=== PATIENT | female | born 1985 | race Caucasian/White ===

== ENCOUNTER 2016-09-03 22:05 | Emergency (ER) | payer MEDICAID ==
[2016-09-03 22:29] VITALS: BP 95/68
--- NOTE | 2016-09-03 23:34 | EDM.PDOC ---
ED HPI GENERAL MEDICAL PROBLEM - General Chief Complaint: [employer] Problem Stated Complaint: VAGINAL BLEEDING Time Seen by Provider: 09/03/16 22:09 Source of Information: Reports: Patient History Limitations: Reports: No Limitations - History of Present Illness INITIAL COMMENTS - FREE TEXT/NARRATIVE: vaginal bleeding; this is a 31 year old female present to ER with concerns of vaginal bleeding that started one and half days ago. reports using Tampon every 1 to 2 hours today with clotting. reports feeling like she is coming out of her skin. denies any fever or chills. no nausea, vomiting or diarrhea. requesting sick slip for work contraception; tubal ligation 2009. 4 children. Onset Date: 09/02/16 Duration: Constant Location: Reports: Abdomen Quality: Reports: Other (body aches and pains) Severity: Mild Improves with: Reports: None Worsens with: Reports: None Associated Symptoms: Reports: Fever/Chills, Weakness Generalized Pain Score (Numeric/FACES): 7 - Related Data Allergies Allergy/AdvReac Type Severity Reaction Status Date / Time amoxicillin trihydrate Allergy Difficulty Verified 09/03/16 22:28 [From Augmentin] Swallowing potassium clavulanate Allergy Difficulty Verified 09/03/16 22:28 [From Augmentin] Swallowing Home Meds: Home Meds Dextroamphetamine/Amphetamine [Adderall 10 mg Tablet] 5 mg PO QAM 10/05/15 [ History] Dextroamphetamine/Amphetamine [Adderall 10 mg Tablet] 10 mg PO TID 10/05/15 [ History] Cyclobenzaprine [Flexeril] 1 tab PO ASDIRECTED 09/03/16 [History] Sertraline [Zoloft] 1 tab PO DAILY 09/03/16 [History] hydrOXYzine Pamoate [Vistaril] 25 mg PO ASDIRECTED 09/03/16 [History] Past Medical History Musculoskeletal History: Reports: Fracture Psychiatric History: Reports: ADHD, Addiction, Anxiety, Depression Other Psychiatric History: insomnia Hematologic History: Reports: Blood Transfusion(s) - Past Surgical History HEENT Surgical History: Reports: Tonsillectomy GI Surgical History: Reports: Colonoscopy Female Surgical History: Reports: D&C Social & Family History - Family History Family Medical History: Unobtainable - Tobacco Use Smoking Status *Q: Light Tobacco Smoker Years of Tobacco use: 20 Packs/Tins Daily: 0.5 Used Tobacco, but Quit: No Month Tobacco Last Used: 08 Second Hand Smoke Exposure: No - Alcohol Use Days Per Week of Alcohol Use: 3 Number of Drinks Per Day: 2 Total Drinks Per Week: 6 - Recreational Drug Use Recreational Drug Use: Yes Recreational Drug Use Frequency: Patient Refuses To Answer - Living Situation & Occupation Living situation: Reports: Single Occupation: Employed ED ROS GENERAL - Review of Systems Review Of Systems: See Below Constitutional: Reports: Chills, Fatigue HEENT: Reports: No Symptoms Respiratory: Reports: No Symptoms Cardiovascular: Reports: No Symptoms Endocrine: Reports: No Symptoms GI/Abdominal: Reports: No Symptoms, Other (vaginal bleeding.) : Reports: Irregular Menses Musculoskeletal: Reports: No Symptoms, Muscle Pain Skin: Reports: Other (facial acne) Neurological: Reports: Tremors Psychiatric: Reports: Anxiety Hematologic/Lymphatic: Reports: No Symptoms Immunologic: Reports: No Symptoms ED EXAM, GI/ABD - Physical Exam Exam: See Below Exam Limited By: No Limitations General Appearance: Alert, WD/WN, No Apparent Distress, Other (twitchy, tremors) Eyes: Bilateral: Normal Appearance Ears: Normal External Exam, Normal Canal, Normal TMs Nose: Normal Inspection, Normal Mucosa, No Blood Throat/Mouth: Normal Inspection, Normal Lips, Normal Teeth, Normal Gums, Normal Oropharynx, Normal Voice, No Airway Compromise Head: Atraumatic, Normocephalic Neck: Normal Inspection, Supple, Non-Tender, Full Range of Motion Respiratory/Chest: No Respiratory Distress, Lungs Clear, Normal Breath Sounds Cardiovascular: Normal Peripheral Pulses, Regular Rate, Rhythm GI/Abdominal: Normal Bowel Sounds, Soft, Non-Tender, No Organomegaly, No Distention, No Abnormal Bruit, No Mass, Pelvis Stable (Female) Exam: Normal External Exam, Normal Speculum Exam, Normal Bimanual Exam, Vaginal Bleeding (scant dark red vaginal discharge, no clots in vaginal vault. cervix thick & close, no motion tenderness. bimanual non tender). No: Adnexal Mass, Adnexal Tenderness, Cervical Dilatation, Cervical Lesions, Cervix Motion Tenderness Rectal (Female) Exam: Deferred Back Exam: Normal Inspection, Full Range of Motion Extremities: Normal Inspection, Normal Range of Motion, Non-Tender Neurological: Alert, Oriented, Normal Cognition Psychiatric: Anxious Skin Exam: Warm, Dry, Intact, Normal Color, Rash (face; scabs and sores noted.) Lymphatic: No Adenopathy Course - Vital Signs Last Recorded V/S: Last Vital Signs Temp 36.1 C 09/03/16 22:25 Pulse 63 09/03/16 22:25 Resp 14 09/03/16 22:25 BP 95/68 09/03/16 22:25 Pulse Ox 99 09/03/16 22:25 - Orders/Labs/Meds Orders: Active Orders 24 hr Category Date Time Status CHLAMYDIA,AND GC BY APTIMA Routine Lab 09/03/16 23:28 Ordered Labs: Laboratory Tests 09/03/16 09/03/16 09/03/16 Range/Units 22:56 22:56 22:56 Urine Color Yellow Urine Appearance Turbid Urine pH 7.0 (4.5-8.0) Ur Specific Marion 1.020 (1.008-1.030) Urine Protein Negative (NEGATIVE) mg/dL Urine Glucose (UA) Normal (NEGATIVE) mg/dL Urine Ketones Negative (NEGATIVE) mg/dL Urine Occult Blood Negative (NEGATIVE) Urine Nitrite Negative (NEGATIVE) Urine Bilirubin Negative (NEGATIVE) Urine Urobilinogen 1 (NORMAL) mg/dL Ur Leukocyte Esterase Negative (NEGATIVE) Urine RBC 0-5 (0-5) Urine WBC Not seen (0-5) Ur Epithelial Cells Rare Amorphous Sediment Packed Urine Bacteria Moderate Urine Mucus Not seen Urine HCG, Qual Negative Urine Opiates Screen Negative (NEGATIVE) Ur Oxycodone Screen Negative (NEGATIVE) Urine Methadone Screen Negative (NEGATIVE) Ur Propoxyphene Screen Negative (NEGATIVE) Ur Barbiturates Screen Negative (NEGATIVE) Ur Tricyclics Screen Positive H (NEGATIVE) Ur Phencyclidine Scrn Negative (NEGATIVE) Ur Amphetamine Screen Positive H (NEGATIVE) U Methamphetamines Scrn Positive H (NEGATIVE) Urine MDMA Screen Negative (NEGATIVE) U Benzodiazepines Scrn Negative (NEGATIVE) U Cocaine Metab Screen Negative (NEGATIVE) U Marijuana (THC) Screen Negative (NEGATIVE) - Re-Assessments/Exams Free Text/Narrative Re-Assessment/Exam: 09/03/16 23:50 discussed positive drug screen. she denies and looks away. advise to stop drugs , healthy lifestyle. discussed the meth use can disrupt body's normal cycles, cause feeling of being out of body and not self, aches and pain. tremors and twitching. Departure - Departure Time of Disposition: 23:52 Disposition: Home, Self-Care 01 Condition: good Clinical Impression: Irregular menstrual cycle, UTI (urinary tract infection), Positive urine drug screen - Discharge Information Referrals: Krish Alicia MD [Primary Care Provider] - Forms: ED Department Discharge Care Plan Goals: irregular menses early bladder infection polysubstance drug use -start macrobid po bid x 5 days -push fluids, eat healthy -urine gc/chlamydia pending -sick slip for work follow up with Primary Care for recheck return to clinic or er if not improved or symptoms worsen - Problem List & Annotations (1) Irregular menstrual cycle Status: Acute Priority: Low Current Visit: Yes (2) Positive urine drug screen SNOMED Code(s): 760740673, 745705709 Code(s): R82.5 - ELEVATED URINE LEVELS OF DRUG/MEDS/BIOL SUBST Status: Acute Priority: Low Current Visit: Yes (3) UTI (urinary tract infection) SNOMED Code(s): 31539829 Code(s): N39.0 - URINARY TRACT INFECTION, SITE NOT SPECIFIED Status: Acute Priority: Low Current Visit: Yes Qualifiers: Urinary tract infection type: site unspecified Hematuria presence: without hematuria Qualified Code(s): N39.0 - Urinary tract infection, site not specified - Problem List Review Problem List Initiated/Reviewed/Updated: Yes - My Orders Last 24 Hours: My Active Orders 09/03/16 23:28 CHLAMYDIA,AND GC BY APTIMA Routine - Assessment/Plan Last 24 Hours: My Active Orders 09/03/16 23:28 CHLAMYDIA,AND GC BY APTIMA Routine Plan: irregular menses early bladder infection polysubstance drug use -start macrobid po bid x 5 days -push fluids, eat healthy -urine gc/chlamydia pending -sick slip for work follow up with Primary Care for recheck return to clinic or er if not improved or symptoms worsen
== END 2016-09-03 23:55 | disposition home or self-care (01) ==
LOC: JP.ED 22:05
DX: N92.6 Irregular menstruation, unspecified (principal); N39.0 Urinary tract infection, site not specified; F41.9 Anxiety disorder, unspecified; F32.9 Major depressive disorder, single episode, unspecified; F17.210 Nicotine dependence, cigarettes, uncomplicated; Z88.1 Allergy status to other antibiotic agents; Z98.51 Tubal ligation status; Z98.890 Other specified postprocedural states
CPT/HCPCS: 80305; 81001; 81025; 87491; 87591; 99283

== ENCOUNTER 2016-10-06 20:26 | Emergency (ER) | payer MEDICAID ==
--- NOTE | 2016-10-06 23:41 | EDM.PDOC ---
[id number]: BOIL ON LEG Time Seen by Provider: 10/06/16 23:30 Source of Information: Reports: Patient History Limitations: Reports: No Limitations - History of Present Illness INITIAL COMMENTS - FREE TEXT/NARRATIVE: 31-year-old female with a lesion on the backside of her right knee she wants looked at, she is concerned she may need incision of an abscess. She has developed these in the past. No fevers or chills. Onset: Unknown/Unsure Location: Reports: Lower Extremity, Right Severity: Mild Associated Symptoms: Reports: No Other Symptoms Right Leg Pain Score (Numeric/FACES): 7 - Related Data Allergies Allergy/AdvReac Type Severity Reaction Status Date / Time amoxicillin trihydrate Allergy Difficulty Verified 10/06/16 23:25 [From Augmentin] Swallowing paroxetine [From Paxil] Allergy Disorientat Verified 10/06/16 23:25 ion potassium clavulanate Allergy Difficulty Verified 10/06/16 23:25 [From Augmentin] Swallowing Home Meds: Home Meds Dextroamphetamine/Amphetamine [Adderall 10 mg Tablet] 5 mg PO DAILY 10/05/15 [ History] Dextroamphetamine/Amphetamine [Adderall 10 mg Tablet] 10 mg PO BID 10/05/15 [ History] Cyclobenzaprine [Flexeril] 1 tab PO ASDIRECTED 09/03/16 [History] hydrOXYzine Pamoate [Vistaril] 25 mg PO ASDIRECTED 09/03/16 [History] Past Medical History Musculoskeletal History: Reports: Fracture Neurological History: Reports: Migraines Psychiatric History: Reports: ADHD, Addiction, Anxiety, Depression Other Psychiatric History: insomnia Hematologic History: Reports: Blood Transfusion(s) Dermatologic History: Reports: Other (See Below) Other Dermatologic History: boil in past - Infectious Disease History Infectious Disease History: Reports: Chicken Pox - Past Surgical History HEENT Surgical History: Reports: Tonsillectomy GI Surgical History: Reports: Colonoscopy Female Surgical History: Reports: D&C Social & Family History - Family History Family Medical History: Unobtainable - Tobacco Use Smoking Status *Q: Current Every Day Smoker Years of Tobacco use: 20 Packs/Tins Daily: 0.5 Used Tobacco, but Quit: No Month Tobacco Last Used: 08 Second Hand Smoke Exposure: No - Caffeine Use Caffeine Use: Reports: Coffee, Soda - Alcohol Use Days Per Week of Alcohol Use: 2 Number of Drinks Per Day: 3 Total Drinks Per Week: 6 - Recreational Drug Use Recreational Drug Use: No Recreational Drug Use Frequency: Patient Refuses To Answer - Living Situation & Occupation Living situation: Reports: Single Occupation: Employed ED ROS GENERAL - Review of Systems Review Of Systems: See Below Constitutional: Denies: Fever, Chills Respiratory: Denies: Shortness of Breath Cardiovascular: Denies: Chest Pain GI/Abdominal: Denies: Abdominal Pain Skin: Reports: Erythema Neurological: Reports: No Symptoms ED EXAM, SKIN/RASH Exam: See Below Exam Limited By: No Limitations General Appearance: Alert, No Apparent Distress Respiratory/Chest: No Respiratory Distress Extremities: Other (Remainder of exam was limited to the right lower extremity, area of concern for the patient. Which she was concerned about was a very small area of erythema with a central abrasion, total surface area of 1.5 x 2 cm with no underlying inflammation or fluctuance. It does not appear to be infected) Course - Vital Signs Last Recorded V/S: Last Vital Signs Temp 97.3 F 10/06/16 23:27 Pulse 83 10/06/16 23:27 Resp 16 10/06/16 23:27 BP 131/77 10/06/16 23:27 Pulse Ox 100 10/06/16 23:27 - Re-Assessments/Exams Free Text/Narrative Re-Assessment/Exam: 10/07/16 02:43 This patient has a history of IV drug use, cutaneous abscesses and MRSA so was started on Bactrim DS twice a day for the next 7-10 days but also reassured that at this time the wound does not look infected and certainly does not need I &D. Departure - Departure Time of Disposition: 23:50 Disposition: Home, Self-Care 01 Condition: Good Clinical Impression: Cellulitis Qualifiers: Site of cellulitis: extremity Site of cellulitis of extremity: lower extremity Laterality: right Qualified Code(s): L03.115 - Cellulitis of right lower limb - Discharge Information Instructions: Cellulitis, Adult Referrals: Karlos Randhawa MD [Primary Care Provider] - Forms: ED Department Discharge Care Plan Goals: Take Bactrim twice daily as prescribed and keep the lesion clean while healing. Recheck if worsening.
[2016-10-07 00:13] VITALS: BP 131/77
== END 2016-10-06 23:52 | disposition home or self-care (01) ==
LOC: JP.ED 20:26
DX: L03.115 Cellulitis of right lower limb (principal); F17.210 Nicotine dependence, cigarettes, uncomplicated; G43.909 Migraine, unspecified, not intractable, without status migrainosus; Z88.1 Allergy status to other antibiotic agents; Z88.8 Allergy status to other drugs, medicaments and biological substances; Z79.899 Other long term (current) drug therapy
CPT/HCPCS: 99283

== ENCOUNTER 2017-01-13 10:11 | Emergency (ER) | payer MEDICAID ==
[2017-01-13 10:45] VITALS: BP 113/60
--- NOTE | 2017-01-13 11:03 | EDM.PDOC ---
ED HPI GENERAL MEDICAL PROBLEM - General Chief Complaint: Skin Complaint Stated Complaint: CYST/BREAKOUT ON LEFT EYE & EARS Time Seen by Provider: 01/13/17 10:45 Source of Information: Reports: Patient History Limitations: Reports: No Limitations - History of Present Illness INITIAL COMMENTS - FREE TEXT/NARRATIVE: 31-year-old female concerned about some small sebaceous cysts or developed on the inner aspect of the ear, and a small cyst it's underneath her left eyebrow that has been chronic. She has her ear covered with gentian sarah thinking it may help. She seems hypersensitive and I think is very possible she still using methamphetamine. She is very hypersensitive to these very minimal cutaneous symptoms. Onset: Unknown/Unsure Severity: Mild LEFT;EAR Pain Score (Numeric/FACES): 7 - Related Data Allergies Allergy/AdvReac Type Severity Reaction Status Date / Time amoxicillin trihydrate Allergy Difficulty Verified 01/13/17 10:40 [From Augmentin] Swallowing paroxetine [From Paxil] Allergy Disorientat Verified 01/13/17 10:40 ion potassium clavulanate Allergy Difficulty Verified 01/13/17 10:40 [From Augmentin] Swallowing Home Meds: Home Meds Dextroamphetamine/Amphetamine [Adderall 10 mg Tablet] 5 mg PO DAILY 10/05/15 [ History] Dextroamphetamine/Amphetamine [Adderall 10 mg Tablet] 10 mg PO BID 10/05/15 [ History] Cyclobenzaprine [Flexeril] 1 tab PO ASDIRECTED 09/03/16 [History] hydrOXYzine Pamoate [Vistaril] 25 mg PO ASDIRECTED 09/03/16 [History] Past Medical History Musculoskeletal History: Reports: Fracture Neurological History: Reports: Migraines Psychiatric History: Reports: ADHD, Addiction, Anxiety, Depression Other Psychiatric History: insomnia Hematologic History: Reports: Blood Transfusion(s) Dermatologic History: Reports: Other (See Below) Other Dermatologic History: boil in past - Infectious Disease History Infectious Disease History: Reports: Chicken Pox - Past Surgical History HEENT Surgical History: Reports: Tonsillectomy GI Surgical History: Reports: Colonoscopy Female Surgical History: Reports: D&C Social & Family History - Family History Family Medical History: Unobtainable - Tobacco Use Smoking Status *Q: Current Every Day Smoker Years of Tobacco use: 20 Packs/Tins Daily: 0.5 Used Tobacco, but Quit: No Month Tobacco Last Used: 08 Second Hand Smoke Exposure: No - Caffeine Use Caffeine Use: Reports: Coffee, Soda - Alcohol Use Days Per Week of Alcohol Use: 2 Number of Drinks Per Day: 3 Total Drinks Per Week: 6 - Recreational Drug Use Recreational Drug Use: No Recreational Drug Use Frequency: Patient Refuses To Answer - Living Situation & Occupation Living situation: Reports: Single Occupation: Employed ED ROS GENERAL - Review of Systems Review Of Systems: See Below Constitutional: Denies: Fever, Chills Respiratory: Denies: Shortness of Breath Cardiovascular: Denies: Chest Pain GI/Abdominal: Denies: Abdominal Pain Neurological: Denies: Headache ED EXAM, SKIN/RASH Exam: See Below Exam Limited By: No Limitations General Appearance: Alert, Anxious Eye Exam: Left Eye: Other (She has a very small firm freely mobile cystic-like lesion that is only a few millimeters across just under the left eyebrow. There is no surrounding inflammation.) Ears: Other (The left ear is covered with gentian sarah limiting the exam somewhat. She does have some palpable small sebaceous cyst like lesions along the shel[place] of the helix. The ear canal is clean and the tympanic membrane is normal) Respiratory/Chest: No Respiratory Distress Neurological: Alert Psychiatric: Anxious Skin: Warm, Dry Course - Vital Signs Last Recorded V/S: Last Vital Signs Temp 96.1 F 01/13/17 10:44 Pulse 78 01/13/17 10:44 Resp 16 01/13/17 10:44 BP 113/60 01/13/17 10:44 Pulse Ox 99 01/13/17 10:44 - Re-Assessments/Exams Free Text/Narrative Re-Assessment/Exam: 01/13/17 11:03 The patient was insistent on getting the small cyst under her eyebrow removed. I explained her that it is not necessary, I can put her on Bactrim which may improve the sebaceous cyst lesions of the ear helix but I encouraged her to have these issues looked at at her primary care in case she needs a procedure or dermatology referral. I also think it's possible she is under the influence of amphetamines which is making her hypersensitive to these complaints. Departure - Departure Time of Disposition: 11:33 Disposition: Home, Self-Care 01 Condition: Good Clinical Impression: Sebaceous cyst of ear - Discharge Information Referrals: Karlos Randhawa MD [Primary Care Provider] - Forms: ED Department Discharge Care Plan Goals: Take antibiotics as prescribed. Twice daily for 5 days, save the remaining 10 if symptoms recur. If not improved in 5 days consider a recheck at the clinic or possibly set up dermatology consult.
== END 2017-01-13 11:33 | disposition home or self-care (01) ==
LOC: JP.ED 10:11
DX: L72.3 Sebaceous cyst (principal); F32.9 Major depressive disorder, single episode, unspecified; F17.210 Nicotine dependence, cigarettes, uncomplicated; Z98.890 Other specified postprocedural states; Z88.1 Allergy status to other antibiotic agents; Z88.8 Allergy status to other drugs, medicaments and biological substances; Z79.899 Other long term (current) drug therapy
CPT/HCPCS: 99283

== ENCOUNTER 2018-09-17 15:51 | Emergency (ER) | payer SELFPAY ==
[2018-09-17 16:09] VITALS: BP 117/68
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
== END 2018-09-17 17:44 | disposition home or self-care (01) ==
LOC: JP.ED 15:51
DX: S00.03XA Contusion of scalp, initial encounter (principal); S30.0XXA Contusion of lower back and pelvis, initial encounter; S80.11XA Contusion of right lower leg, initial encounter; F17.210 Nicotine dependence, cigarettes, uncomplicated; Z88.8 Allergy status to other drugs, medicaments and biological substances; V89.2XXA Person injured in unspecified motor-vehicle accident, traffic, initial encounter
CPT/HCPCS: 70450; 99284-25